=== PATIENT | female | born 1980 | race Caucasian/White ===

== ENCOUNTER 2019-09-20 01:50 | Emergency (ER) | payer SELFPAY ==
[~2019-09-20] VITALS: Ht 162.6 cm; Wt 72.7 kg
[2019-09-20 04:17] VITALS: BP 104/57
== END 2019-09-20 05:00 | disposition home or self-care (01) ==
LOC: EMS 01:52
DX: R11.10 Vomiting, unspecified (principal); R41.3 Other amnesia; R47.81 Slurred speech